=== PATIENT | male | born 1990 ===

== ENCOUNTER 2016-07-01 22:55 | Emergency (ER) | payer SELFPAY ==
[2016-07-01 23:01] VITALS: TEMP 98.1
--- NOTE | 2016-07-01 23:13 | C.PDOC ---
History Of Present Illness 25M c/o non-rad left side chest pain that started about 1 hour ago. no exac or reliev fx. he denies any pmh, meds, drugs, etoh, smoking. denies any risk fx for dvt/pe. Time Seen by Provider: 07/01/16 23:10 Chief Complaint (Nursing): Chest Pain Past Medical History Vital Signs: Last Vital Signs Temp 98.1 F 07/01/16 22:58 Pulse 101 H 07/01/16 22:58 Resp 16 07/01/16 22:58 BP 129/79 07/01/16 22:58 Pulse Ox 97 07/01/16 23:21 Family History: States: Other Other Family History: nc - Social History Hx Alcohol Use: No Hx Substance Use: No Review Of Systems Constitutional: Negative for: Fever, Chills Cardiovascular: Positive for: Chest Pain. Negative for: Edema Respiratory: Negative for: Cough, Shortness of Breath, Hemoptysis Gastrointestinal: Negative for: Nausea, Vomiting Neurological: Negative for: Weakness, Numbness Physical Exam - Physical Exam Appears: Well, Non-toxic, No Acute Distress Skin: Warm, Dry, No Diaphoretic Head: Atraumatic Eye(s): bilateral: PERRL, EOMI Chest: Tenderness (reproducible pain w palpation over left inferior sternal border) Cardiovascular: Rhythm Regular, No Murmur Respiratory: No Decreased Breath Sounds, No Accessory Muscle Use, No Rales, No Rhonchi, No Stridor, No Wheezing Gastrointestinal/Abdominal: Soft, No Tenderness Extremity: No Calf Tenderness, No Swelling Pulses: Left Radial: Normal, Right Radial: Normal Neurological/Psych: Oriented x3, Other (no focal deficits) ED Course And Treatment O2 Sat by Pulse Oximetry: 97 Medical Decision Making Medical Decision Making: ecg- nsr 82, nl axis, nl int, no acute ischemia 1220am on re-eval pt is feeling better. disc results, plan for f/u, and rtr PERC neg HEART low risk Disposition - Disposition Disposition: HOME/ ROUTINE Disposition Time: 00:25 Condition: IMPROVED - Clinical Impression Clinical Impression: Chest pain
[2016-07-02 00:36] VITALS: BP 120/73; PULSE 86; RESP 20; O2SAT 100
--- NOTE | 2016-07-02 09:12 | RAD ---
HISTORY: Chest pain COMPARISON: No prior. TECHNIQUE: Chest PA and lateral FINDINGS: LUNGS: No active pulmonary disease. PLEURA: No significant pleural effusion identified. No pneumothorax apparent. CARDIOVASCULAR: Normal. OSSEOUS STRUCTURES: No significant abnormalities. VISUALIZED UPPER ABDOMEN: Normal. OTHER FINDINGS: None. IMPRESSION: No active disease.
--- NOTE | 2016-07-02 14:29 | CARD ---
APPROVED REPORT EKG Measurement Heart [id number] <Conclusion> Normal sinus rhythm Normal ECG
== END 2016-07-02 00:36 | disposition home or self-care (01) ==
LOC: C.ER 22:55
DX: R07.89 Other chest pain (principal)
CPT/HCPCS: 71020; 93005; 96374; 99285; J1885